=== PATIENT | female | born 1995 | race Caucasian/White ===

== ENCOUNTER 2021-04-22 08:07 | Outpatient (REF) | payer OTHER, SELFPAY ==
[2021-04-22 11:44] LABS: Hematocrit 43.8 % (37-47); Hemoglobin 14.6 g/dl (12.0-16.0); Mean Corpuscular HGB Conc 33.3 g/dl (31.0-35.0); Mean Corpuscular Hemoglobin 30.9 pg (27.0-33.0); Mean Corpuscular Volume 92.8 fL (80-98); Mean Platelet Volume 9.5 fL (9.4-12.3); Platelet Count 224 X10*3/uL (160-400); Red Blood Count 4.72 X10*6/uL (4.20-5.50); Red Cell Distribution Width 12.1 % (11.0-16.0); White Blood Count 5.3 X10*3/uL (4.8-10.8)
[2021-04-22 12:00] LABS: Alanine Aminotransferase 8 U/L (0-31); Albumin Level 4.7 g/dL (3.5-5.0); Alkaline Phosphatase 55 U/L (39-117); Anion Gap 11 (12-20); Aspartate Amino Transferase 14 U/L (5-31); Bilirubin Total 0.5 mg/dL (0.0-1.0); Blood Urea Nitrogen 14 mg/dL (9-16); Calcium 9.5 mg/dL (8.4-10.2); Carbon Dioxide 26 mmol/L (22-29); Chloride 106 mmol/L (96-108); Cholesterol 152 mg/dL; Estimated Glomerular Filt Rate > 60; Glucose Fasting 84 mg/dL (60-99); HDL Cholesterol 58 mg/dL; LDL Cholesterol Calculated 82 mg/dl; Potassium 4.4 mmol/L (3.3-5.1); Sodium 139 mmol/L (135-145); Total Protein 7.2 g/dL (6.5-8.0); Triglycerides 62 mg/dL
== END 2021-04-22 08:08 | disposition home or self-care (01) ==
LOC: HO.HMGCLDS 08:07
PROVIDERS: PCP Internal Medicine; Visit Provider Internal Medicine
DX: Z00.00 Encounter for general adult medical examination without abnormal findings (principal)
CPT/HCPCS: 36415; 80053; 80061; 85027

== ENCOUNTER 2021-05-20 13:56 | Outpatient (REF) | payer OTHER, SELFPAY ==
[2021-05-21 02:55] LABS: CT PCR NOT DETECTED (Not Detect.); NG PCR NOT DETECTED (Not Detect.)
[2021-05-21 09:29] LABS: BV Int Neg Control Negative (Negative); BV Int Pos Control Positive (Positive)
== END 2021-05-20 13:57 | disposition home or self-care (01) ==
LOC: HO.LAB 13:56
PROVIDERS: PCP Internal Medicine; Visit Provider Advanced Practice Midwife
DX: Z01.419 Encounter for gynecological examination (general) (routine) without abnormal findings (principal); Z11.3 Encounter for screening for infections with a predominantly sexual mode of transmission; Z20.2 Contact with and (suspected) exposure to infections with a predominantly sexual mode of transmission; N91.2 Amenorrhea, unspecified
CPT/HCPCS: 81025; 87480; 87491; 87510; 87591; 87660; 88142

== ENCOUNTER 2021-06-03 13:04 | Outpatient (REF) | payer OTHER, SELFPAY ==
--- NOTE | ~2021-06-03 | US_ITS ---
EXAMINATION: US PELVIS CLINICAL INFORMATION: Amenorrhea. COMPARISON: None. TECHNIQUE: Ultrasound of the pelvis is performed using both transabdominal and transvaginal transducers along with Doppler. Transvaginal imaging is performed due to inadequate visualization transabdominally. FINDINGS: The uterus is anteverted and measures 7 x 2.9 x 4.3 cm in dimension. No focal uterine lesion is seen. Endometrial thickness is normal measuring 0.5 cm. There are nabothian cysts in the cervix. The ovaries are normal in size. The right ovary measures 4.3 x 2 x 2.2 cm and the left ovary measures 3.7 x 2.2 x 2.3 cm. There are multiple small peripheral cysts or follicles seen in both ovaries. There is no fluid in the pelvis. US/US pelvic and transvaginal IMPRESSION: Normal-appearing uterus. Normal thickness endometrium. Normal-sized ovaries with multiple small cysts or follicles.
[2021-06-03 14:02] LABS: Hemoglobin 13.6 g/dl (12.0-16.0); Mean Corpuscular HGB Conc 33.2 g/dl (31.0-35.0); Mean Corpuscular Hemoglobin 30.8 pg (27.0-33.0); Mean Corpuscular Volume 92.8 fL (80.0-98.0); Mean Platelet Volume 8.8 fL (9.4-12.3); Platelet Count 266 X10*3/uL (160-400); Red Blood Count 4.42 X10*6/uL (4.20-5.50); Red Cell Distribution Width 12.2 % (11.0-16.0); White Blood Count 7.6 X10*3/uL (4.8-10.8)
[2021-06-03 14:35] LABS: Alanine Aminotransferase 11 U/L (0-31); Albumin Level 4.6 g/dL (3.5-5.0); Alkaline Phosphatase 60 U/L (39-117); Anion Gap 11 (12-20); Aspartate Amino Transferase 16 U/L (5-31); Bilirubin Total 0.3 mg/dL (0.0-1.0); Blood Urea Nitrogen 10 mg/dL (9-16); Calcium 9.5 mg/dL (8.4-10.2); Carbon Dioxide 29 mmol/L (22-29); Chloride 103 mmol/L (96-108); Estimated Glomerular Filt Rate > 60; Glucose Random 83 mg/dL (60-115); Potassium 3.9 mmol/L (3.3-5.1); Sodium 139 mmol/L (135-145); Total Protein 7.1 g/dL (6.5-8.0)
[2021-06-03 14:57] LABS: Thyroid Stimulating Hormone 1.11 uIU/mL (0.32-4.0)
[2021-06-04 11:36] LABS: DHEA Sulfate 466 mcg/dL (18-391)
[2021-06-04 18:27] LABS: Follicle Stimulating Hormone 7.7 mIU/mL; Lutenizing Hormone 19.6 mIU/mL; Prolactin 23.5 ng/mL
[2021-06-08 19:11] LABS: Testosterone, Free 4.3 pg/mL (0.1-6.4); Testosterone, Total 31 ng/dL (2-45)
== END 2021-06-03 13:05 | disposition home or self-care (01) ==
LOC: HO.US 13:04
PROVIDERS: PCP Internal Medicine; Visit Provider Advanced Practice Midwife
DX: Z01.419 Encounter for gynecological examination (general) (routine) without abnormal findings (principal); N91.2 Amenorrhea, unspecified
CPT/HCPCS: 36415; 76830; 76856; 80053; 82627; 83001; 83002; 84146; 84402; 84403; 84443; 85027

== ENCOUNTER → 2021-06-22 09:47 | Outpatient (BNVA) | payer OTHER, SELFPAY | PROVIDERS: PCP Internal Medicine; Visit Provider Advanced Practice Midwife ==

== ENCOUNTER 2023-03-04 07:55 | Outpatient (AMB) | payer OTHER, SELFPAY ==
--- NOTE | 2023-03-04 08:06 | A.OFFPC_ITS ---
Vital Signs 03/04/23 08:09 Height 5 ft 3 in Weight 123 lb BMI 21.8 BP 92/68 Blood Pressure Location Rt brachial Position Sitting Pulse 93 Pulse Source Pulse Oximeter Pulse Oximetry (%) 100 Oxygen Delivery Method Room Air Intake Visit Reasons: PE Intake Note: Pt is here today for her PE Allergies No Known Allergies Allergy (Verified 03/04/23 08:09) Tobacco use date assessed: 03/04/23 Dental Screening Dental Screen Date: 03/04/23 Did you have a dental visit in the last 12 months?: Yes Did you have a dental problem in the last 6 months where you did not have access to dental care?: No Was dental information given to patient?: Patient has dentist HPI PE HPI Details Pt presents for PE. Patient is getting in April. Her fiancee's studies [employer] in [place]. [facility] Medical History Annual physical exam Family History Father Heart attack Mother High cholesterol Other Mental health disorder Substance use disorder Social History Household Members Other:: lives with boyfriend, 1/2 PPD, walks dogs, work at [employer], Housing: Apartment Patient Tobacco Use Status: Current everyday Tobacco user Tobacco use type: Cigarette Cigarette Packs Per Day: 0.5 Years Smoked: 10 e-Cigarette/Vaping Use: Never Used Current occupational status: employed Cognitive needs: No Hearing needs: No Vision needs: No Female Reproductive History Menstrual Age of Menarche: 11 Questionnaire PHQ-9 Over the last 2 weeks, how often have you been bothered by any of the following problems? 1. Little interest or pleasure in doing things: not at all 2. Feeling down, depressed, or hopeless: not at all 3. Trouble falling or staying asleep, or sleeping too much: not at all 4. Feeling tired or having little energy: not at all 5. Poor appetite or overeating: not at all 6. Feeling bad about yourself - or that you are a failure or have let yourself or your family down: not at all 7. Trouble concentrating on things, such as reading the newspaper or watching television: not at all 8. Moving or speaking so slowly that other people could have noticed. Or the opposite - being so fidgety or restless that you have been moving around a lot more than usual: not at all 9. Thoughts that you would be better off or of hurting yourself in some way: not at all Total score: 0 Depression Screening Interpretation: Negative Source: Developed by Drs. Jamil Caputo, Skylar Gee, Ward Mak and colleagues, with an educational margarita from [employer]. Thrive Questionnaire Date Thrive assessed: 03/04/23 I am a: Patient What is your living situation today?: I have a steady place to live Within the past 12 months, did the food you bought not last and you didn't have the money to get more?: Never true Within the past 12 months, did you worry whether your food would run out before you got money to buy more?: Never true Do you have trouble paying for medicines?: No Do you have trouble getting transportation to medical appointments?: No Do you have trouble paying your heating and electricity bill?: No Do you have trouble taking care of your child, family member or friend?: No Do you have trouble with day-to-day activities such as bathing, preparing meals, shopping, managing finances, etc.?: No Are you currently unemployed and looking for a job?: No Are you interested in more education?: No AUDIT C Alcohol Use Questionnaire (AUDIT-C) 1. How often do you have a drink containing alcohol?: Monthly or less 2. How many drinks containing alcohol do you have on a typical day when you are drinking?: 1 or 2 3. How often do you have six or more drinks on one occasion?: Never Total Score: 1 MANUELA-7 AMB Questionnaire MANUELA-7 Date MAUNELA - 7 assessed: 03/04/23 Feeling nervous, anxious, or on edge: 0 = Not at all Not being able to stop or control worryin = Not at all Worrying too much about different things: 0 = Not at all Trouble relaxin = Not at all Being so restless that it is hard to sit still: 0 = Not at all Becoming easily annoyed or irritable: 0 = Not at all Feeling afraid as if something awful might happen: 0 = Not at all Total MANUELA-7 score (0-4 normal; 5-9 mild; 10-14 moderate; 15-21 severe): 0 Source: Developed by Drs. Jamil Caputo, Skylar Gee, Ward Mak and colleagues, with an educational margarita from [employer]. Review of Systems Const All systems reviewed & are unremarkable except as noted in HPI and below Reports no additional complaints Eyes Reports no additional complaints ENT Reports no additional complaints Card Reports no additional complaints Resp Reports no additional complaints GI Reports no additional complaints Reports no additional complaints Physical exam (Primary Care) Vital Signs: Last Vital Signs Pulse 93 03/04/23 08:09 BP 92/68 03/04/23 08:09 Pulse Ox 100 03/04/23 08:09 Oxygen Delivery Method Room Air 03/04/23 08:09 BMI result Body Mass Index 21.8 Tobacco/Smoking Status: Tobacco use Status Tobacco use date assessed 03/04/23 03/04/23 08:12 Patient Tobacco Use Status Current everyday Tobacco 03/04/23 08:07 Tobacco use type Cigarette 03/04/23 08:07 e-Cigarette/Vaping Use Never Used 03/04/23 08:07 PHQ-9: PHQ-9 Score PHQ-9: Total score 0 03/04/23 08:14 Depression Screening Interpretation: Negative Thrive Assessment: Date of Thrive Assessment Date Thrive assessed 03/04/23 03/04/23 08:14 Const General: no acute distress HENMT Head: Yes normal to inspection Ears: hearing grossly normal bilaterally General nose exam: Normal external nose present Face and sinus: Yes normal facial exam Mouth: Normal oral and palatal mucosa present Throat: Yes posterior oropharynx normal Eyes General: appearance normal, both eyes and all related structures Neck Neck: Yes no lymphadenopathy and Yes supple Resp Effort & Inspection: normal respiratory effort Auscultation: clear to auscultation bilaterally Cardio Rhythm: regular rhythm Heart sounds: S1 normal heart sound present and S2 normal heart sound present GI Inspection: Yes normal to inspection Palpation (GI): Soft to palpation Percussion: Yes normal to percussion Auscultation: normal bowel sounds Assessment and Plan Assessment & Plan (1) Annual physical exam: Code(s): Z00.00 - Encounter for general adult medical examination without abnormal findings Plan: Well-balanced diet and regular exercise discussed with the patient Coding Level of Care Code Est Pt Prev Care 18-39y(48876) Diagnoses Annual physical exam Z00.00
[2023-03-04 08:09] VITALS: BP 92/68; PULSE 93; O2SAT 100; BMI 21.8
== END 2023-03-04 08:39 | disposition home or self-care (01) ==
PROVIDERS: Visit Provider Internal Medicine
DX: Z00.00 Encounter for general adult medical examination without abnormal findings (principal)
CPT/HCPCS: 99395

== ENCOUNTER 2024-03-12 11:24 | Outpatient (AMB) | payer OTHER, SELFPAY ==
[2024-03-12 11:29] VITALS: BP 108/66; PULSE 80; O2SAT 99; BMI 24.1
--- NOTE | 2024-03-12 11:29 | MHC.PC.OV ---
Vital Signs 03/12/24 11:29 Height 5 ft 3 in Weight 136 lb BMI 24.1 BP 108/66 Blood Pressure Location Rt brachial Position Sitting Pulse 80 Pulse Source Pulse Oximeter Pulse Oximetry (%) 99 Oxygen Delivery Method Room Air Intake Visit Reasons: Annual PE Intake Note: Pt is here today for PE. Allergies No Known Allergies Allergy (Verified 03/12/24 11:46) Medication List - Last Reconciled 03/12/24 by Nieves Flores MD No Known Home Meds Tobacco use date assessed: 03/12/24 Dental Screening Dental Screen Date: 03/12/24 Did you have a dental visit in the last 12 months?: Yes Did you have a dental problem in the last 6 months where you did not have access to dental care?: No Was dental information given to patient?: Patient has dentist HPI Annual PE HPI Details Patient presents for physical. She burned her right upper thigh a week ago and reports persistent erythema and slight rash. She has been applying antibacterial cream. [facility] Medical History Annual physical exam Surgical History (Updated 03/12/24 @ 11:51 by BEBETO Stanley) H/O removal of cyst Family History Father Heart attack Mother High cholesterol Other Mental health disorder Substance use disorder Social History (Updated 03/12/24 @ 11:52 by BEBETO Stanley) Household Members Other:: lives with boyfriend, , walks dogs, work at [employer], Housing: Apartment Patient Tobacco Use Status: Former Tobacco user (October 2023) Tobacco use type: Cigarette Years Smoked: 10 e-Cigarette/Vaping Use: Never Used service: No Current occupational status: employed Cognitive needs: No Hearing needs: No Vision needs: No Female Reproductive History Menstrual Age of Menarche: 11 Questionnaire PHQ-9 Over the last 2 weeks, how often have you been bothered by any of the following problems? 1. Little interest or pleasure in doing things: not at all 2. Feeling down, depressed, or hopeless: not at all 3. Trouble falling or staying asleep, or sleeping too much: not at all 4. Feeling tired or having little energy: not at all 5. Poor appetite or overeating: not at all 6. Feeling bad about yourself - or that you are a failure or have let yourself or your family down: not at all 7. Trouble concentrating on things, such as reading the newspaper or watching television: not at all 8. Moving or speaking so slowly that other people could have noticed. Or the opposite - being so fidgety or restless that you have been moving around a lot more than usual: not at all 9. Thoughts that you would be better off or of hurting yourself in some way: not at all Total score: 0 Depression Screening Interpretation: Negative Depression Screening Done: Yes 51053 - PHQ-9 Billing: Yes Source: Developed by Drs. Jamil Caputo, Skylar Gee, Ward Mak and colleagues, with an educational margarita from [employer]. Thrive Questionnaire Date Thrive assessed: 03/12/24 I am a: Patient What is your living situation today?: I have a steady place to live Within the past 12 months, did the food you bought not last and you didn't have the money to get more?: Never true Within the past 12 months, did you worry whether your food would run out before you got money to buy more?: Never true Do you have trouble paying for medicines?: No Do you have trouble getting transportation to medical appointments?: No Do you have trouble paying your heating and electricity bill?: No Do you have trouble taking care of your child, family member or friend?: No Do you have trouble with day-to-day activities such as bathing, preparing meals, shopping, managing finances, etc.?: No Are you currently unemployed and looking for a job?: No Are you interested in more education?: No Please select the resources that you would like help with: None THRIVE Score: 0 AUDIT C Alcohol Use Questionnaire (AUDIT-C) 1. How often do you have a drink containing alcohol?: Monthly or less 2. How many drinks containing alcohol do you have on a typical day when you are drinking?: 1 or 2 3. How often do you have six or more drinks on one occasion?: Never Total Score: 1 MANUELA-7 AMB Questionnaire MANUELA-7 Date MANUELA - 7 assessed: 03/12/24 Feeling nervous, anxious, or on edge: 0 = Not at all Not being able to stop or control worryin = Not at all Worrying too much about different things: 0 = Not at all Trouble relaxin = Not at all Being so restless that it is hard to sit still: 0 = Not at all Becoming easily annoyed or irritable: 0 = Not at all Feeling afraid as if something awful might happen: 0 = Not at all Total MANUELA-7 score (0-4 normal; 5-9 mild; 10-14 moderate; 15-21 severe): 0 Source: Developed by Drs. Jamil Caputo, Skylar Gee, Ward Mak and colleagues, with an educational margarita from [employer]. MANUELA-7 Assessment Billing MANUELA-7 Assessment Tool: MANUELA-7 Assessment 81518 Review of Systems Const All systems reviewed & are unremarkable except as noted in HPI and below Eyes Reports no additional complaints Card Reports no additional complaints Resp Reports no additional complaints GI Reports no additional complaints Reports no additional complaints Physical exam (Primary Care) Vital Signs: Last Vital Signs Pulse 80 03/12/24 11:29 BP 108/66 03/12/24 11:29 Pulse Ox 99 03/12/24 11:29 Oxygen Delivery Method Room Air 03/12/24 11:29 BMI result Body Mass Index 24.1 Tobacco/Smoking Status: Tobacco use Status Tobacco use date assessed 03/12/24 03/12/24 11:46 Patient Tobacco Use Status Former Tobacco user (03/12/24 11:52 2023) Tobacco use type Cigarette 03/12/24 11:52 e-Cigarette/Vaping Use Never Used 03/12/24 11:52 PHQ-9: PHQ-9 Score PHQ-9: Total score 0 03/12/24 12:31 Depression Screening Interpretation: Negative Thrive Assessment: Date of Thrive Assessment Date Thrive assessed 03/12/24 03/12/24 11:39 Const General: no acute distress HENMT Head: Yes normal to inspection Mouth: Normal oral and palatal mucosa present Eyes General: appearance normal, both eyes and all related structures Neck Neck: Yes supple Resp Effort & Inspection: normal respiratory effort Auscultation: clear to auscultation bilaterally Cardio Rhythm: regular rhythm Heart sounds: S1 normal heart sound present and S2 normal heart sound present GI Inspection: Yes normal to inspection Palpation (GI): Soft to palpation Percussion: Yes normal to percussion Auscultation: normal bowel sounds Assessment and Plan Assessment & Plan (1) Annual physical exam: Code(s): Z00.00 - Encounter for general adult medical examination without abnormal findings Plan: Well-balanced diet regular exercise discussed with the patient she will return for fasting blood work. She is established with OBGYN. Orders: Orders Comprehensive [place]. Panel Fast Today Z00.00 - Encounter for general adult medical examination without abnormal findings Lipid Panel Today Z00.00 - Encounter for general adult medical examination without abnormal findings Complete Blood Count Auto Diff Today Z00.00 - Encounter for general adult medical examination without abnormal findings UA w Microscopic Today Z00.00 - Encounter for general adult medical examination without abnormal findings Medications: New silver sulfadiazine 1% apply a 1.5 mm thickness 1 appl topical DAILY 50 grams 0RF Coding Level of Care Code Est Pt Prev Care 18-39y(35701) Diagnoses Annual physical exam Z00.00 Additional Codes MANUELA-7 Assessment Billing - MANUELA-7 Assessment Tool: MANUELA-7 Assessment [id number] ([id number])
== END 2024-03-12 12:38 | disposition home or self-care (01) ==
PROVIDERS: PCP Internal Medicine; Visit Provider Internal Medicine
DX: Z00.00 Encounter for general adult medical examination without abnormal findings (principal)
CPT/HCPCS: 99395

== ENCOUNTER 2024-03-21 06:33 | Outpatient (REF) | payer OTHER, SELFPAY ==
[2024-03-21 10:09] LABS: MANUAL DIFF FLAG NO
[2024-03-21 10:14] LABS: Basophils Percent Auto 0.6 % (0-2); Eosinophils Absolute Auto 0.1 X10*3/uL (0.0-0.4); Eosinophils Percent Auto 2.5 % (0-4); Hemoglobin 13.6 g/dl (12.0-16.0); Imm Gran Abs Auto 0.01 X10*3/uL (0.00-0.03); Imm Gran Pct Auto 0.2 % (0.0-0.4); Lymphocytes Absolute Auto 1.8 X10*3/uL (1.2-4.9); Lymphocytes Percent Auto 35.2 % (20-40); Mean Corpuscular HGB Conc 33.2 g/dl (31.0-35.0); Mean Corpuscular Hemoglobin 31.1 pg (27.0-33.0); Mean Corpuscular Volume 93.8 fL (80.0-98.0); Mean Platelet Volume 9.3 fL (9.4-12.3); Monocytes Absolute Auto 0.5 X10*3/uL (0.1-1.2); Monocytes Percent Auto 9.6 % (2-11); Neutrophils Absolute Auto 2.7 x10*3/uL (2.0-8.3); Neutrophils Percent Auto 51.9 % (45-73); Platelet Count 223 X10*3/uL (160-400); Red Blood Count 4.37 X10*6/uL (4.20-5.50); Red Cell Distribution Width 11.9 % (11.0-16.0); White Blood Count 5.1 X10*3/uL (4.8-10.8)
[2024-03-21 10:24] LABS: Appearance Urine Cloudy; Color Urine Yellow; Glucose Urine UA Negative (Negative); Leukocyte Esterase Urine Trace (Negative); Nitrite Urine Negative (Negative); Specific Gravity - Urine 1.025 (1.005-1.025); UMIC TRIGGER UA YES; Urine Blood Negative (Negative); Urine Ketones Negative (Negative); Urine Protein Negative (Neg-Trace)
[2024-03-21 10:36] LABS: Alanine Aminotransferase 14 U/L (0-31); Albumin Level 4.3 g/dL (3.5-5.0); Alkaline Phosphatase 50 U/L (39-117); Anion Gap 7 (12-20); Aspartate Amino Transferase 19 U/L (5-31); Bacteria Urine None Seen (None Seen); Bilirubin Total 0.3 mg/dL (0.0-1.0); Blood Urea Nitrogen 19 mg/dL (9-16); Calcium 9.2 mg/dL (8.4-10.2); Carbon Dioxide 30 mmol/L (22-29); Chloride 106 mmol/L (96-108); Cholesterol 173 mg/dL (<200); Estimated Glomerular Filt Rate > 60; Glucose Fasting 93 mg/dL (60-99); HDL Cholesterol 72 mg/dL (>40); Hyaline Casts Urine 0-2 /LPF (0-2); LDL Cholesterol Calculated 92 mg/dL (<100); Potassium 4.2 mmol/L (3.3-5.1); RBC Urine 0-2 /HPF (0-2); Sodium 139 mmol/L (135-145); Total Protein 6.7 g/dL (6.5-8.0); Triglycerides 47 mg/dL (<150); WBC Urine 0-5 /HPF (0-5)
== END 2024-03-21 06:34 | disposition home or self-care (01) ==
LOC: HO.HMGCLDS 06:33
PROVIDERS: PCP Internal Medicine; Visit Provider Internal Medicine
DX: Z00.00 Encounter for general adult medical examination without abnormal findings (principal)
CPT/HCPCS: 36415; 80053; 80061; 81001; 85025

== ENCOUNTER 2024-04-18 09:30 | Outpatient (REF) | payer OTHER, SELFPAY ==
[2024-04-19 08:08] LABS: CT PCR NOT DETECTED (Not Detect.); NG PCR NOT DETECTED (Not Detect.)
[2024-04-19 10:44] LABS: Bacterial Vaginosis PCR NEGATIVE (Negative); Candida Group PCR NOT DETECTED (Not Detect); Candida glab krusei PCR NOT DETECTED (Not Detect); Trichomonas vaginalis PCR NOT DETECTED (Not Detect)
[2024-04-25 01:14] LABS: HPV 16 RNA NOT DETECTED (NOT DETECTED); HPV mRNA E6/E7 Detected (Not Detected)
== END 2024-04-18 09:31 | disposition home or self-care (01) ==
LOC: HO.LAB 09:30
PROVIDERS: PCP Internal Medicine; Visit Provider Advanced Practice Midwife
DX: Z01.419 Encounter for gynecological examination (general) (routine) without abnormal findings (principal); N89.8 Other specified noninflammatory disorders of vagina; Z20.2 Contact with and (suspected) exposure to infections with a predominantly sexual mode of transmission
CPT/HCPCS: 0352U; 36415; 81025; 87491; 87591; 87624; 87625; 88175; 99395

== ENCOUNTER 2024-04-18 09:30 | Outpatient (AMB) | payer OTHER, SELFPAY ==
[2024-04-18 09:41] VITALS: BP 100/60; BMI 24.1
--- NOTE | 2024-04-18 09:41 | A.OFFVIS_ITS ---
Vital Signs 04/18/24 09:41 Height 5 ft 3 in Weight 136 lb BMI 24.1 BP 100/60 Intake Visit Reasons: New patient pcos Quality Management Coordinator Required: No Information Interpreted: clinical only Supervisor Sandblaster: Supervisor Sandblaster Present Allergies No Known Allergies Allergy (Verified 04/18/24 09:42) Medication List - Last Reconciled 04/18/24 by Zeina Ventura CNM No Known Home Meds Is last menstrual period known: Yes Last menstrual period: 02/15/24 HPI HPI New patient pcos: Details: Patient says she called for this appointment and was told she had to get referral from her primary turns out it was more than 3 years since her last tube mounter annual and that is probably why she does have a history of PCOS she is trying to get and not having any success she got last April and it is coming up on a year and they have been trying. She had a workup PCOS 3 years ago and she was last year and full discussion about the issues took place at that time she was keeping track of her cycles and they were regular she never did deemed to take Provera that I gave her 3 years ago however this recent 2 months her period has not come since January she keeps doing tests and they are negative. 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 [facility] Medical History Annual physical exam Surgical History H/O removal of cyst Family History Father Heart attack Mother High cholesterol Other Mental health disorder Substance use disorder Social History Household Members Other:: lives with boyfriend, , walks dogs, work at replaced by [employer], Housing: Apartment Patient Tobacco Use Status: Former Tobacco user (October 2023) Tobacco use type: Cigarette Years Smoked: 10 e-Cigarette/Vaping Use: Never Used service: No Current occupational status: employed Cognitive needs: No Hearing needs: No Vision needs: No Female Reproductive History Menstrual Age of Menarche: 11 Duration of menses: 3-5 days Date of last menstrual period: 02/15/24 control method: none Total pregnancies: 0 Date of last pap smear: 05/20/21 (negative,previous pap 2017 WNL) History of abnormal pap smear: No Physical Exam Vital Signs: Last Vital Signs BP 100/60 04/18/24 09:41 BMI result Body Mass Index 24.1 Const General: healthy appearing, comfortable, no acute distress, well developed and alert Nutritional Appearance: average body habitus Orientation/consciousness: patient oriented x3 Limitations: no limitations HEENT Head: Yes normocephalic Neck Neck: Yes normal visual inspection Chest Chest palpation & inspection: normal inspection of the chest Breast/axilla inspection: normal inspection of the breasts and normal inspection of the axillae Breast/axilla palpation: normal palpation of the breasts and normal palpation of the axillae Resp Effort & Inspection: normal respiratory effort GI Inspection: Yes normal to inspection, No Abdominal wall edema and No distended Palpation (GI): Soft to palpation and nontender Other: External exam within limits vagina is pink and moist whitish creamy wish discharge consistent with luteal phase or perhaps other cause. Nulliparous cervix with nabothian cysts cervix long close thick mobile nontender uterus is midposition to slightly retroverted but not extremely so adnexa nontender nonenlarged good tone with Kegel. General: Yes bladder normal to palpation External Female Exam: normal external appearance and normal appearance of the urethra Speculum Exam - Vagina: normal appearance of the vagina, normal palpation and normal vaginal discharge Speculum Exam - Cervix: normal appearance of the cervix, normal palpation and nontender Bimanual exam- vagina & uterus: normal bimanual exam, normal palpation, uterine size normal, bladder normal to palpation, consistency normal, normal palpation, uterine mobility normal, uterine shape normal, No Cervical tenderness present, non-tender and no cervical motion tenderness Bimanual Exam- Adnexa, other: normal adnexae, no masses, normal and No adnexal tenderness Neuro General: patient oriented x3 Results AMB Test Urine AMB Test Urine Negative Last Edit by Jaciel Jang CMA on 04/18/24 09:53 Results Reviewed Results Reviewed: Patient: Jada Yun MR#: [id number] : 1995 Acct:[id number] Age/Sex: 25 / F ADM Date: 06/03/21 Loc: .US Attending Dr: Zeina Ventura CNM Ordering Physician: Zeina Ventura CNM Date of Service: 06/03/21 Procedure(s): US pelvic and transvaginal Accession Number(s): [id number] cc: Zeina Ventura CNM~ EXAMINATION: US PELVIS CLINICAL INFORMATION: Amenorrhea. COMPARISON: None. TECHNIQUE: Ultrasound of the pelvis is performed using both transabdominal and transvaginal transducers along with Doppler. Transvaginal imaging is performed due to inadequate visualization transabdominally. FINDINGS: The uterus is anteverted and measures 7 x 2.9 x 4.3 cm in dimension. No focal uterine lesion is seen. Endometrial thickness is normal measuring 0.5 cm. There are nabothian cysts in the cervix. The ovaries are normal in size. The right ovary measures 4.3 x 2 x 2.2 cm and the left ovary measures 3.7 x 2.2 x 2.3 cm. There are multiple small peripheral cysts or follicles seen in both ovaries. There is no fluid in the pelvis. US/US pelvic and transvaginal IMPRESSION: Normal-appearing uterus. Normal thickness endometrium. Normal-sized ovaries with multiple small cysts or follicles. Dictated By: Marivel Singh MD Signed By: <Electronically signed by Marivel Singh MD in OV> 06/05/21 1200 DD/ 1306 TD/TT: Pension Administrator: KARLA Name: Jada Yun Age/Sex: 25/F Attending: Zeina Ventura CNM : 1995 Submitted by: Zeina Ventura CNM Copies to: Nieves Flores MD MR #: [id number] Status: DEP REF Collected: 05/20/21 Location: .LAB Received: 05/21/21 Interpretation Satisfactory for evaluation. Mild inflammation. Negative for intraepithelial lesion or malignancy. Clinical Information LMP: 02/10/21 Previous PAP test: 2017, WNL Material Received ThinPrep- Cervical Copies To Nieves Flores MD [facility] [place] [address] [place] [address] Electronically Signed By: MARK West (ASCP) 05/29/21 8639 The Pap Test is a screening procedure with the inherent possibility of both false negative and false positive results. Results should be interpreted in the context of historic and current clinical findings. Reliabi lity of the Pap Test is enhanced by performing the test on a regular repetitive basis. Patient: Jada Yun Age/Sex: 25/F MR#: [id number] Page 1 of 1 Assessment & Plan Assessment & Plan (1) Well woman exam with routine gynecological exam: Code(s): Z01.419 - Encounter for gynecological examination (general) (routine) without abnormal findings Category: Medical (2) Anovulatory amenorrhea: Code(s): N91.2 - Amenorrhea, unspecified Category: Medical (3) Cervical cancer screening: Comment: 05/20/21 pap= neg, tube mounter Code(s): Z12.4 - Encounter for screening for malignant neoplasm of cervix Category: Medical (4) PCOS (polycystic ovarian syndrome): Code(s): E28.2 - Polycystic ovarian syndrome Category: Medical (5) Infertility associated with anovulation: Code(s): N97.0 - Female infertility associated with anovulation Category: Medical Plan -----Discussed in this visit the following: healthy balanced diet, regular and consistent exercise, getting recommended health screens, doing the best she can for her particular health concerns, kegel exercises, pap smear screening and followup recommendations, mammography screening and SBE, normal changes in cycles in her life stage--- . ---Discussed PCOS in general and specifically about the interplay of the abnormal hormonal milieu related to being overweight, with the elevations of many hormone levels, including testosterone and estrogen, as well as others that contribute to cycles that are anovulatory and therefore prolonged, and when periods do come they come very heavy, and can contribute to lots of cramping, with passage of clots and anemia. Discussed the common symptoms related to the elvated hormonal levels, including increased facial hair, male pattern hair thinning, acne, and increased central abdominal girth. Discussed the interplay with difficulty getting when desired, but still possible, and therefore the need to contracept as appropriate and when needed. Discussed the role of weight loss as the primary, most important, and most likely to succeed, intervention, in achieving healthier status as regards PCOS, and ovulatory regular cycles. Additionally the very important relationship to elevated insulin levels, and blood sugars, and high risk of pre diabetes, progressing to diabetes as well as other metabolic syndromes related to this was discussed. Also discussed common interventions for some of the above, including if appropriate, use of oral contraceptives, and progestin iuds, and provera. ---I discussed with pt some of the optimal strategies for planning a , including achieving the best health she can before , including heathy balanced diet, exercise, wt loss to ideal BMI if appropriate, avoiding toxic substances and medications, not smoking, and taking a multivitamin w folic acid daily. Any specific health concerns should be managed before seeking/ putting oneself at risk of pregancy. In addition I reviewed normal cycles, fertility awareness and signs of ovulation, and timing to avoid, and achieve when she feel ready. I also discussed emotional and relationship and support readiness before embarking on . Discussed all of these issues in context that discussed them before she is healthy she is actually taking vitamins and folic acid and has been quit smoking. It been trying for some time she is not overweight so many of these issues thankfully do not apply to her discussed that she really needs to just see somebody in reproductive infertility services discussed that the practices had a merger of some sort in [facility] and [facility] and while it still says [facility] reproductive infertility in the computer apparently the name as changed a [facility] so I recommend that she do her own like work as well and call but I have placed a referral to [facility] reproductive infertility which is the only option in the computer I am also sending prescription for Provera for her if she does not get a period I would recommend that she abstain from unprotected intercourse for least 2 weeks do a test to be sure she is not and then if she has not gotten a period take the Provera for 10 days anticipate a withdrawal bleed. After that but she may get period on own she does feel premenstrual. Additionally when she does get she should since she is now living in [place] 5 minutes from [facility] she should check out all of the [facility] practices available to her and consider her options but initiate care from the start and 1 of those practices continue on from there. Orders: Orders AMB HCG Urine Test Today Z32.02 - Encounter for test, result negative Referrals Infertility Reproductive Referral (female) E28.2 - Polycystic ovarian syndrome, N91.2 - Amenorrhea, unspecified, N97.0 - Female infertility associated with anovulation, Z01.419 - Encounter for gynecological examination (general) (routine) without abnormal findings, Z12.4 - Encounter for screening for malignant neoplasm of cervix Medications: New medroxyprogesterone (Provera) take if no menses, and after 2w of no UPI, and do preg test first 10 mg PO DAILY 10 tabs 0RF Coding Level of Care Code New Pt Prev Care 18-39yr([id number] Diagnoses Well woman exam with routine gynecological exam Z01.419 Anovulatory amenorrhea N91.2 Cervical cancer screening Z12.4 PCOS (polycystic ovarian syndrome) E28.2 Infertility associated with anovulation N97.0
== END 2024-04-18 10:37 | disposition home or self-care (01) ==
PROVIDERS: PCP Internal Medicine; Visit Provider Advanced Practice Midwife
DX: Z01.419 Encounter for gynecological examination (general) (routine) without abnormal findings (principal); N91.2 Amenorrhea, unspecified; E28.2 Polycystic ovarian syndrome; N97.0 Female infertility associated with anovulation; Z32.02 Encounter for pregnancy test, result negative
CPT/HCPCS: 99395

== ENCOUNTER 2024-05-17 08:05 | Outpatient (AMB) | payer OTHER, SELFPAY ==
[2024-05-17 08:13] VITALS: BP 110/80; PULSE 100; TEMP 37.4; O2SAT 98; BMI 25.2
--- NOTE | 2024-05-17 08:13 | AM.OFFWIN_ITS ---
Intake Vital Signs 05/17/24 08:13 Height 5 ft 3 in Weight 142 lb BMI 25.2 BP 110/80 Blood Pressure Location Lt brachial Position Sitting Pulse 100 Pulse Source Pulse Oximeter Temp 99.3 F Temp Source Oral Pulse Oximetry (%) 98 Oxygen Delivery Method Room Air Intake Visit Reasons: EP-fever, cough, tight chest Intake Note: Patient here for fever, cough a d chest tightness that started on Tuesday. Patient Tobacco Use Status: Former Tobacco user (October 2023) Allergies No Known Allergies Allergy (Verified 05/17/24 08:19) Do you need a note to return to daycare/school/sports/work: No HPI HPI Comments History of Present Illness Details Patient is a 28-year-old female complaining of 3 days of a fever with a T-max of 101 degrees F, a dry cough, chest tightness and a little bit of shortness of breaths as well as a headache. She denies any head congestion, sinus pain, ear pain, nausea, vomiting or diarrhea. She states her was just sick with pneumonia and was given 2 antibiotics and is now starting to feel better. She has been trying to take NyQuil and DayQuil without much relief. She tells me she does have a history of asthma but does not currently have an inhaler. She did test for COVID twice and both times it was negative. [facility] Medical History Annual physical exam Surgical History H/O removal of cyst Family History Father Heart attack Mother High cholesterol Other Mental health disorder Substance use disorder Social History Household Members Other:: lives with boyfriend, , walks dogs, work at [email or web address], Housing: Apartment Patient Tobacco Use Status: Former Tobacco user (October 2023) Tobacco use type: Cigarette Years Smoked: 10 e-Cigarette/Vaping Use: Never Used service: No Current occupational status: employed Cognitive needs: No Hearing needs: No Vision needs: No Female Reproductive History Menstrual Age of Menarche: 11 Review of Systems Const All systems reviewed & are unremarkable except as noted in HPI and below Physical Exam Const General: cooperative, healthy appearing, comfortable and no acute distress Orientation/consciousness: patient oriented x3 Limitations: no limitations HEENT Head: Yes normal to inspection Ears: hearing grossly normal bilaterally, external ears normal and TM's normal bilaterally General nose exam: Normal external nose present, Normal nares present and No nasal discharge present Face and sinus: Yes normal facial exam and Yes sinuses nontender Mouth: Normal oral and palatal mucosa present and moist mucous membranes Throat: Yes tonsils normal, Yes uvula midline and Yes posterior oropharynx abnormal (Erythema) Eyes General: appearance normal, both eyes and all related structures Neck Neck: Yes normal visual inspection Resp Effort & Inspection: normal respiratory effort, able to speak in complete sentences, no respiratory distress, not tachypneic, no tripod positioning and no use of accessory muscles Auscultation: clear to auscultation bilaterally Cardio Rate: regular rate Rhythm: regular rhythm Heart sounds: normal S1 and S2 Skin General skin exam: no rashes or lesions noted Neuro General: patient oriented x3 Extrem General: Yes normal to inspection and Yes no clubbing, cyanosis or edema Assessment & Plan Assessment & Plan (1) URI (upper respiratory infection): Code(s): J06.9 - Acute upper respiratory infection, unspecified Qualifiers: URI type: unspecified URI Qualified Code(s): J06.9 - Acute upper respiratory infection, unspecified Plan: VSS lung sounds are clear, however I will treat her the same her the same as her was tx'd for PNA because they likely have the same bacteria. Plan see above Medications: New albuterol sulfate 90 mcg/actuation 2 puffs inhalation Q6H PRN 8.5 grams 0RF shortness of breath or wheezing or cough amoxicillin-pot clavulanate 875-125 mg 1 tab PO Q12H 10 tabs 0RF azithromycin For 250 mg dose pack: take 500 mg today (day 1), then 250 mg for 4 days (days 2-5) PO 6 tabs 0RF Coding Level of Care Code Est Pt Level 3 (92629) Diagnoses Upper respiratory tract infection, unspecified type J06.9 URI type: unspecified URI
== END 2024-05-17 08:43 | disposition home or self-care (01) ==
PROVIDERS: PCP Internal Medicine; Visit Provider Physician Assistant
DX: J06.9 Acute upper respiratory infection, unspecified (principal)

== ENCOUNTER → 2024-05-17 08:05 | Outpatient (BNVA) | payer OTHER, SELFPAY | PROVIDERS: PCP Internal Medicine | DX: J06.9 Acute upper respiratory infection, unspecified (principal) | CPT/HCPCS: 99212 ==

== ENCOUNTER 2025-03-19 13:11 | Outpatient (AMB) | payer OTHER, SELFPAY ==
--- NOTE | 2025-03-19 13:25 | A.OFFPC_ITS ---
Vital Signs 03/19/25 13:26 Height 5 ft 3 in Weight 182 lb BMI 32.2 BP 114/76 Blood Pressure Location Lt brachial Position Sitting Respiration 16 Pulse 83 Pulse Source Pulse Oximeter Temp 98.1 F Temp Source Oral Pulse Oximetry (%) 97 Oxygen Delivery Method Room Air Intake Visit Reasons: Annual PE Flight Teacher Required: No Accompanied by: Self / Same As Patient Allergies No Known Allergies Allergy (Verified 03/19/25 13:26) Tobacco use date assessed: 03/19/25 Dental Screening Dental Screen Date: 03/19/25 Did you have a dental visit in the last 12 months?: Yes Did you have a dental problem in the last 6 months where you did not have access to dental care?: No Was dental information given to patient?: Patient has dentist HPI Annual PE HPI Details Pt presents for PE. She had a baby boy 1 week ago. Patient had uncomplicated and delivery. She is staying home with her son. [facility] Medical History (Updated 03/19/25 @ 15:08 by Nieves Flores MD) Cervical cancer screening PCOS (polycystic ovarian syndrome) Annual physical exam Surgical History H/O removal of cyst Family History Father Heart attack Mother High cholesterol Other Mental health disorder Substance use disorder Social History Household Members Other:: lives with boyfriend, , walks dogs, work at [employer], Housing: Apartment Patient Tobacco Use Status: Former Tobacco user (October 2023) Tobacco use type: Cigarette Years Smoked: 10 e-Cigarette/Vaping Use: Never Used service: No Current occupational status: employed Cognitive needs: No Hearing needs: No Vision needs: No Female Reproductive History Menstrual Age of Menarche: 11 Questionnaire PHQ-9 Over the last 2 weeks, how often have you been bothered by any of the following problems? 1. Little interest or pleasure in doing things: not at all 2. Feeling down, depressed, or hopeless: not at all 3. Trouble falling or staying asleep, or sleeping too much: not at all 4. Feeling tired or having little energy: not at all 5. Poor appetite or overeating: not at all 6. Feeling bad about yourself - or that you are a failure or have let yourself or your family down: not at all 7. Trouble concentrating on things, such as reading the newspaper or watching television: not at all 8. Moving or speaking so slowly that other people could have noticed. Or the opposite - being so fidgety or restless that you have been moving around a lot more than usual: not at all 9. Thoughts that you would be better off or of hurting yourself in some way: not at all Total score: 0 Depression Screening Interpretation: Negative Depression Screening Done: Yes 00396 - PHQ-9 Billing: Yes Source: Developed by Drs. Jamil Caputo, Skylar Gee, Ward Mak and colleagues, with an educational margarita from [employer]. Thrive Questionnaire Date Thrive assessed: 03/14/25 I am a: Patient What is your living situation today?: I have a steady place to live Within the past 12 months, did the food you bought not last and you didn't have the money to get more?: Never true Within the past 12 months, did you worry whether your food would run out before you got money to buy more?: Never true Do you have trouble paying for medicines?: No Do you have trouble getting transportation to medical appointments?: No Do you have trouble paying your heating and electricity bill?: No Do you have trouble taking care of your child, family member or friend?: No Do you have trouble with day-to-day activities such as bathing, preparing meals, shopping, managing finances, etc.?: No Are you currently unemployed and looking for a job?: No Are you interested in more education?: No Please select the resources that you would like help with: None Currently or been in a relationship where the following occur: I choose not to answer THRIVE Score: 0 AUDIT C Alcohol Use Questionnaire (AUDIT-C) 1. How often do you have a drink containing alcohol?: Never 2. How many drinks containing alcohol do you have on a typical day when you are drinking?: 1 or 2 3. How often do you have six or more drinks on one occasion?: Never Total Score: 0 MANUELA-7 AMB Questionnaire MANUELA-7 Date MANUELA - 7 assessed: 03/19/25 Feeling nervous, anxious, or on edge: 0 = Not at all Not being able to stop or control worryin = Not at all Worrying too much about different things: 0 = Not at all Trouble relaxin = Not at all Being so restless that it is hard to sit still: 0 = Not at all Becoming easily annoyed or irritable: 0 = Not at all Feeling afraid as if something awful might happen: 0 = Not at all Total MANUELA-7 score (0-4 normal; 5-9 mild; 10-14 moderate; 15-21 severe): 0 Source: Developed by Drs. Jamil Caputo, Skylar Gee, Ward Mak and colleagues, with an educational margarita from [employer]. MANUELA-7 Assessment Billing MANUELA-7 Assessment Tool: MANUELA-7 Assessment 12869 Review of Systems Const All systems reviewed & are unremarkable except as noted in HPI and below Eyes Reports no additional complaints ENT Reports no additional complaints Card Reports no additional complaints Resp Reports no additional complaints GI Reports no additional complaints Reports no additional complaints Physical exam (Primary Care) Vital Signs: Last Vital Signs Temp 98.1 F 03/19/25 13:26 Pulse 83 03/19/25 13:26 Resp 16 03/19/25 13:26 BP 114/76 03/19/25 13:26 Pulse Ox 97 03/19/25 13:26 Oxygen Delivery Method Room Air 03/19/25 13:26 BMI result Body Mass Index 32.2 Tobacco/Smoking Status: Tobacco use Status Tobacco use date assessed 03/19/25 03/19/25 13:30 Patient Tobacco Use Status Former Tobacco user (03/19/25 13:30 2023) Tobacco use type Cigarette 03/19/25 13:30 e-Cigarette/Vaping Use Never Used 03/19/25 13:30 PHQ-9: PHQ-9 Score PHQ-9: Total score 0 03/19/25 13:30 Depression Screening Interpretation: Negative Thrive Assessment: Date of Thrive Assessment Date Thrive assessed 03/14/25 03/19/25 13:30 Currently or been in a relationship where the following occur: I choose not to answer Const General: no acute distress HENMT Head: Yes normal to inspection Ears: TM's normal bilaterally Face and sinus: Yes normal facial exam Throat: Yes posterior oropharynx normal Eyes General: appearance normal, both eyes and all related structures Neck Neck: Yes no lymphadenopathy and Yes supple Resp Effort & Inspection: normal respiratory effort Auscultation: clear to auscultation bilaterally Cardio Rhythm: regular rhythm Heart sounds: S1 normal heart sound present and S2 normal heart sound present GI Inspection: Yes normal to inspection Palpation (GI): Soft to palpation Percussion: Yes normal to percussion Auscultation: normal bowel sounds Coding Level of Care Code Est Pt Prev Care 18-39y(06944) Diagnoses Annual physical exam Z00.00 Cervical cancer screening Z12.4 Additional Codes MANUELA-7 Assessment Billing - MANUELA-7 Assessment Tool: MANUELA-7 Assessment 64418 ([id number]) PHQ-9 - 80921 - PHQ-9 Billing: Yes ([id number]) Assessment & Plan Assessment & Plan (1) Annual physical exam: Code(s): Z00.00 - Encounter for general adult medical examination without abnormal findings Category: Medical Plan: Well-balanced diet regular physical activity discussed with the patient (2) Cervical cancer screening: Comment: 05/20/21 pap= neg, telephone mechanic; 04/18/2024 Pap is negative but with positive HPV. Established with [facility] telephone mechanic Code(s): Z12.4 - Encounter for screening for malignant neoplasm of cervix Category: Medical Plan: Follow-up with telephone mechanic
[2025-03-19 13:26] VITALS: BP 114/76; PULSE 83; RESP 16; TEMP 36.7; O2SAT 97; BMI 32.2
== END 2025-03-19 14:44 | disposition home or self-care (01) ==
LOC: HO.HMCC 13:12
PROVIDERS: PCP Internal Medicine; Visit Provider Internal Medicine
DX: Z00.00 Encounter for general adult medical examination without abnormal findings (principal); Z12.4 Encounter for screening for malignant neoplasm of cervix

== ENCOUNTER → 2025-03-19 13:11 | Outpatient (BNVA) | payer OTHER, SELFPAY | PROVIDERS: PCP Internal Medicine; Visit Provider Internal Medicine | DX: Z00.00 Encounter for general adult medical examination without abnormal findings (principal) | CPT/HCPCS: 96127; 99395 ==